=== PATIENT | female | born 1945 | race Two or more races ===

== ENCOUNTER 2022-08-03 18:14 | Inpatient (IN) | payer OTHER ==
[~2022-08-03] VITALS: Ht 167.6 cm; Wt 43.5 kg
[2022-08-03] MEDS ORDERED: SYNTHROID125 MCG (20:03)
[2022-08-03] MEDS ORDERED: PANTOPRAZOLE SO40 MG (20:04)
[2022-08-03] MEDS ORDERED: LOSARTAN POTASS50 MG (20:04)
[2022-08-03] MEDS ORDERED: GABAPENTIN400 MG (20:05)
[2022-08-03] MEDS ORDERED: D3 + K2 DOTS 11 EACH (20:06)
[2022-08-03] MEDS ORDERED: SIMVASTATIN5 MG (20:07)
[2022-08-03] MEDS ORDERED: FUSION PLUS CA1 EACH (20:07)
[2022-08-03] MEDS ORDERED: NUFOLA CAPSULE1 EAC1 (20:08)
--- NOTE | 2022-08-03 20:08 | NUR ---
LLEGA A LA LEONIE DE EMERGENCIA CON RESULTADO DE LABORATORIO DE HEMOGLOBINA EN 5.5 Y HEMATOCRITO DE 16.7. REFIERE SER PACIENTE DE CANCER, Y HOY SE FUE DE BOCA CUANDO SE LEVANTO RECIBIENDO TRAUMA EN LA FRENTE. ALEGA SENTIRSE DENYS DEBIL. PENDIENTE EVALUACION INICAL.
--- NOTE | 2022-08-03 21:20 | NUR ---
SE LLAMA A BANCO DE HERMILA DE [facility] Y SE HABLA CON MRS.PAMELLA SOBRE SI PTE TIENE RECORD PREVIO, NIDIA REFIERE QUE NO HAY RECORD Y HAY QUE COGER TERCER TUBO HAL. EN ADICIONAL SE REQUISA 3 UNIDADES DE PRBC.
--- NOTE | 2022-08-03 22:02 | NUR ---
PTE FEMENINA ALERTA Y ORIENTADA X3 ES EVALUADA POR . SE ORIENTA SOBRE ORDENES DE [place] REFIERE COMPRENDER. SE COLECTAN MUESTRAS DE LABORATORIOS Y SE CANALIZA VENA BAJO MEDIDAS ASEPTICAS. SE COLECTAN TUBOS PILOTOS PARA TRANSFUSION.
[2022-08-04] MEDS ORDERED: FAMOTIDINE20 MG (14:26)
[2022-08-04] MEDS ORDERED: CHOLESTYRAMINE L4 GM (14:26)
[2022-08-04] MEDS ORDERED: VITAMIN D31250 MCG (14:26)
[2022-08-04] MEDS ORDERED: ESOMEPRAZOLE MA40 MG (14:26)
[2022-08-04] MEDS ORDERED: CYANOCOBAL1000 MCG/1 (14:26)
[2022-08-04] MEDS ORDERED: FOLIC ACID1 MG (14:26)
== END 2022-08-13 22:34 | disposition expired | DRG 374 ==
LOC: ER 18:14 → SURG 23:25 → SEC-K 23:25 → SURG 08-04 03:11
PROVIDERS: ADMIT Internal Medicine; ATTEND Internal Medicine
PROC: BW21ZZZ Computerized Tomography (CT Scan) of Abdomen and Pelvis (ICD-10-PCS; 2022-08-03)
PROC: 4A12X4Z Monitoring of Cardiac Electrical Activity, External Approach (ICD-10-PCS; 2022-08-04)
PROC: 30233N1 Transfusion of Nonautologous Red Blood Cells into Peripheral Vein, Percutaneous Approach (ICD-10-PCS; 2022-08-04)
PROC: 02HV33Z Insertion of Infusion Device into Superior Vena Cava, Percutaneous Approach (ICD-10-PCS; 2022-08-08)
PROC: 4A12X4Z Monitoring of Cardiac Electrical Activity, External Approach (ICD-10-PCS; 2022-08-08)
PROC: 0BH17EZ Insertion of Endotracheal Airway into Trachea, Via Natural or Artificial Opening (ICD-10-PCS; principal; 2022-08-13)
PROC: 5A1935Z Respiratory Ventilation, Less than 24 Consecutive Hours (ICD-10-PCS; 2022-08-13)
DX: C18.0 Malignant neoplasm of cecum (principal); J96.00 Acute respiratory failure, unspecified whether with hypoxia or hypercapnia; N13.39 Other hydronephrosis; L03.311 Cellulitis of abdominal wall; N39.0 Urinary tract infection, site not specified; L02.211 Cutaneous abscess of abdominal wall; C78.6 Secondary malignant neoplasm of retroperitoneum and peritoneum; L03.317 Cellulitis of buttock; K92.2 Gastrointestinal hemorrhage, unspecified; K63.2 Fistula of intestine; K43.9 Ventral hernia without obstruction or gangrene; D63.0 Anemia in neoplastic disease; E03.9 Hypothyroidism, unspecified; I10 Essential (primary) hypertension; B96.5 Pseudomonas (aeruginosa) (mallei) (pseudomallei) as the cause of diseases classified elsewhere; B96.1 Klebsiella pneumoniae [K. pneumoniae] as the cause of diseases classified elsewhere; B95.2 Enterococcus as the cause of diseases classified elsewhere; B96.89 Other specified bacterial agents as the cause of diseases classified elsewhere; I00 Rheumatic fever without heart involvement; Z20.822 Contact with and (suspected) exposure to COVID-19; K21.9 Gastro-esophageal reflux disease without esophagitis; D50.0 Iron deficiency anemia secondary to blood loss (chronic)